=== PATIENT | female | born 1935 | race Two or more races ===

== ENCOUNTER → 2016-07-20 | Day surgery (SDC) | payer MEDICARE, MEDICAID ==
[~2016-07-20] VITALS: Ht 157.5 cm; Wt 72.6 kg
[2016-07-20] VITALS (10 sets, daily range): BP systolic 116–147; BP diastolic 58–75
[~2016-07-20] MED LIST: ATENOLOL25 MG ORAL; ATORVASTATIN CA20 MG ORAL; Bacitracin Oint 15gm Tube TOPIC ONE; Betadine 10% Oint 15gm TOPIC ONE; Bupivacaine 0.5% Inj 30 ml vial INJ ONE; CAPTOPRIL12.5 MG PO; CREON DR 12,001 EACH PO; Dexamethasone 4mg/ml vial ONE; ENALAPRIL MALE2.5 MG ORAL; FUROSEMIDE20 M1 ORAL; Hydromorphone 0.5mg/0.5ml inj IVP PRN; Ketorolac 30mg Inj IV PRN; Lidocaine 1% Plain 30 ml INJ ONE; NEXIUM40 MG ORAL; NS Irrig 1000ml IRRIG ONE; NS Irrig 1000ml ONE; Norco 5mg/325mg tab ORAL PRN; Sterile Water Irrig 1000ml IRRIG ONE; fentaNYL 100 mcg/2 mL IV PRN
--- NOTE | 2016-07-20 10:12 | Pre-Procedure Note/Attestation ---
Pre-Procedure Note/Attestation Complete Prior to Procedure Planned Procedure: right Procedure Narrative: Bunionectomy with great toe implant right foot Indications for Procedure Pre-Operative Diagnosis: Hallux Rigidus right foot Attestation I attest that I discussed the nature of the procedure; its benefits; risks and complications; and alternatives (and the risks and benefits of such alternatives ), prior to the procedure, with the patient (or the patient's legal employer relations representative). I attest that, if there was a reasonable possibility of needing a blood transfusion, the patient (or the patient's legal employer relations representative) was given the [facility] standardized written summary, pursuant to the [place] Blood Safety Act ([place] Health and Safety Code # 1645, as amended). I attest that I re-evaluated the patient just prior to the surgery and that there has been no change in the patient's H&P, except as documented below: SINAN COELLO Jul 20, 2016 10:12
--- NOTE | 2016-07-20 11:27 | Anethesia Preoperative Eval ---
Anesthesia Pre-op PMH/ROS General Date of Evaluation: Jul 20, 2016 Time of Evaluation: 09:55 Anesthesiologist: Marilyn ASA Score: ASA 2 Mallampati Score Class I : Soft palate, uvula, fauces, pillars visible Class II: Soft palate, uvula, fauces visible Class III: Soft palate, base of uvula visible Class IV: Only hard plate visible Mallampati Classification: Class I Surgeon: Cinda Diagnosis: Bunion Surgical Procedure: Toe implant Anesthesia History: none Family History: no anesthesia problems Allergies: Coded Allergies: CIPROFLOXACIN (Verified Allergy, Severe, Shortness of Breath, 07/20/16) PENICILLINS (Verified Allergy, Severe, Rash, 07/20/16) STREPTOMYCIN (Verified Allergy, Unknown, 07/20/16) Medications: see eMAR Past Medical History Cardiovascular: Reports: HTN, other - lipids Pulmonary: Denies: COPD, EDITH, asthma, other Gastrointestinal/Genitourinary: Denies: CRI, ESRD, GERD, other Neurologic/Psychiatric: Denies: CVA, TIA, dementia, depression/anxiety, other Endocrine: Denies: DM, hypothyroidism, other, steroids Hematology/Immune: Denies: DVT, anemia, bleeding disorder, other Musculoskeletal/Integumentary: Denies: DDD, DJD, OA, RA, edema, other Anesthesia Pre-op Phys. Exam Physician Exam Last Vital Signs Date Time Temp Pulse Resp B/P Pulse Ox O2 Delivery O2 Flow Rate FiO2 07/20/16 09:12 97.8 59 18 133/75 98 Room Air Neurologic: CN 2-12 intact Cardiovascular: RRR Respiratory: CTA Airway Exam Mallampati Score: Class II SREEKANTH SHEIKH M.D. Jul 20, 2016 11:27
--- NOTE | 2016-07-20 11:46 | Immediate Post-Op Evaluation ---
Immediate Post-Op Evalulation Immediate Post-Op Evalulation Procedure: Impant great toe Date of Evaluation: Jul 20, 2016 Time of Evaluation: 11:55 IV Fluids: 500 Blood Products: 0 Estimated Blood Loss: 0 Urinary Output: 0 Blood Pressure Systolic: 120 Blood Pressure Diastolic: 80 Pulse Rate: 75 Respiratory Rate: 20 O2 Sat by Pulse Oximetry: 98 Temperature (Fahrenheit): 98 Pain Score (1-10): 1 Nausea: No Vomiting: No Complications na Patient Status: awake Hydration Status: adequate Drug: Ancef 1G Given Within 1 Hr of Incision: Yes Time Given: 10:15 SREEKANTH SHEIKH M.D. Jul 20, 2016 11:46
--- NOTE | 2016-07-20 11:47 | 48 Hour Post Anesthesia Eval ---
Post Anesthesia Evaluation Procedure: Impant great toe Date of Evaluation: Jul 20, 2016 Time of Evaluation: 12:55 Blood Pressure Systolic: 120 0: 80 Pulse Rate: 75 Respiratory Rate: 20 Temperature (Fahrenheit): 98 O2 Sat by Pulse Oximetry: 99 Airway: patent Nausea: No Vomiting: No Pain Intensity: 1 Hydration Status: adequate Cardiopulmonary Status: stable Mental Status/LOC: patient returned to baseline Follow-up Care/Observations: na Post-Anesthesia Complications: na Follow-up care needed: N/A SREEKANTH SHEIKH M.D. Jul 20, 2016 11:47
--- NOTE | 2016-07-20 11:49 | Brief Operative Note ---
Immediate Post Operative Note Operative Note Pre-op Diagnosis: Hallux Rigidus right foot Procedure: Bunionectomy with great toe implant right foot Post-op Diagnosis: same as pre-op Surgeon: Cinda Anesthesiologist: Marilyn Anesthesia: general Specimen: yes Complications: none Condition: stable Estimated Blood Loss: minimal Drains: none Implant(s) used?: Yes SINAN COELLO Jul 20, 2016 11:49
--- NOTE | 2016-07-20 13:51 | Diagnostic Imaging Report ---
Indication: POST-OP, status post bunionectomy and osteotomy Technique: 3 views right foot Comparison: none Findings: Proximal phalanx. There is intervening prosthesis. Considerable degenerative proliferative change of the adjacent first metatarsal sesamoid is noted. There is retained air within the surgical wound. There is a small plantar spur. Impression: Postoperative right foot. No unusual features
--- NOTE | 2016-07-20 22:08 | Operative Note - Dictated ---
DATE OF OPERATION: 07/20/2016 DATE OF OPERATION: July 20, 2016. SURGEON: Kofi Loo D.P.M. ANESTHESIOLOGIST: Adonis Sanders M.D. ANESTHESIA: General. PREOPERATIVE DIAGNOSIS: Hallux rigidus, right foot. POSTOPERATIVE DIAGNOSIS: Hallux rigidus, right foot. PROCEDURE PERFORMED: Bunionectomy with great toe implant right foot. DESCRIPTION OF THE OPERATION: The patient was brought to the operating room and was placed on the operating room table in the supine position. General anesthesia was administered by the anesthesiologist. Local anesthesia consisting of 0.5% Marcaine plain total of 20 mL was administered to the right foot. An ankle tourniquet was applied to the right lower extremity. The foot was prepped and draped in the usual sterile manner. An Esmarch bandage was utilized to exsanguinate the blood and the right ankle tourniquet was inflated to 250 mmHg. Attention was then directed to the first metatarsophalangeal joint where an approximately 6 cm dorsal linear skin incision was centered over the joint. The incision was deepened utilizing sharp and blunt dissection with care being taken to cauterize and ligate all bleeders. At the level of the capsule, a linear capsulotomy was performed. The capsule was reflected medially and laterally. At this point, a large dorsal spur overlying the first metatarsal head was resected in total. The wound was copiously flushed utilizing sterile saline. The medial eminence of the first metatarsal was resected in total. The remaining bone was rasped smooth. Utilizing a guide to cuts proximal and distal to the joints were made utilizing the sagittal saw. The guide was then removed and the cuts were completed. Utilizing the sagittal saw removing the head of the first metatarsal and the base of the proximal phalanx in an angled position. At this point, the wound was copiously flushed. Guide hole was then introduced into the first metatarsal and reamer was utilized to create the proximal entry of the implant. At this point, the reamer was utilized to create the distal entry of the implant. A Sizer was then inserted and appeared to be in a proper position. The Sizer was removed and the wound was copiously flushed utilizing sterile saline. At this point, a size 30 Primus total great toe joint was inserted and the hallux appeared to be in proper alignment. The range of motion of that toe was adequate. At this point, the wound was copiously flushed again utilizing sterile saline. The capsule was then reapproximated utilizing 3-0 Vicryl in a simple interrupted type stitch. The subcutaneous tissue was then reapproximated utilizing 4-0 Vicryl in a buried knot type stitch. The skin was then reapproximated utilizing 4-0 nylon in a simple interrupted type stitch. The wound was dressed utilizing an Adaptic 4 x 4 gauze and 3 inch Pushpa. Right ankle tourniquet was deflated and vascular supply was noted to all digits right foot. The patient tolerated the procedure well and left the operating room to recovery room with all vital signs stable. Kofi Loo D.P.M. DR: ELMER JOB#: [id number] CC:
--- NOTE | 2016-07-20 22:47 | Pre-op HX & Phy Repo 2 SIG ---
DATE OF ADMISSION: 07/20/2016 PODIATRIC HISTORY AND PHYSICAL HISTORY OF PRESENT ILLNESS: This is a 81-year-old white female who is admitted today for an outpatient surgery of her right foot. The patient has been complaining about right foot pain for the past four years. She indicates that she is constantly experiencing pain when she is wearing shoes. She is very limited with the shoes that she can wear. The patient was consulted on bunionectomy years ago and had finally came to the decision to undergo the surgery. PAST MEDICAL HISTORY: Remarkable for hypertension, osteoarthritis, gastroesophageal reflux disease, and chronic urinary tract infections. MEDICATIONS: At home, atenolol, enalapril, Nexium, and Creon. ALLERGIES: Cipro and penicillin. PODIATRIC PHYSICAL EXAMINATION: VASCULAR STATUS: The dorsalis pedis and posterior tibial arteries are measuring 1/4 bilaterally. The capillary filling time is less than 4 seconds to all digits bilaterally. Homans sign is negative. Mild varicosities are noted, bilateral lower extremity. NEUROLOGICAL: Reveals intact reflexes, Achilles and patella bilaterally. The sharp, dull proprioception, and vibrations sensation all intact, bilateral lower extremity. Babinski is absent. Clonus is negative. MUSCULOSKELETAL: Reveals dorsal bunion, right foot at and a medial bunion, left foot. The range of motion of the first metatarsophalangeal joint is completely absent. There are nonreducible hammertoe deformities of all digits, 2 through 5 bilaterally. Crepitation is noted to range of motion of the midfoot and rearfoot. There is a stage III hallux abductovalgus on the left. DERMATOLOGICAL: Reveals mycotic nails bilaterally. There are no ulcerations or scars bilaterally. ASSESSMENT: Hallux rigidus, right foot. PLAN: The patient is admitted today for bunionectomy with great toe implant of her right foot. Risks, complications, and alternatives were discussed with the patient. Postoperative care was reviewed with the patient. The patient was given postoperative medication and elected to proceed with surgery. Kofi Loo D.P.M. DR: MIHAELA JOB#: [id number] CC:
== END | disposition home or self-care (01) ==
LOC: SUR 08:26
DX: M20.21 Hallux rigidus, right foot (principal); M21.611 Bunion of right foot; M20.41 Other hammer toe(s) (acquired), right foot; B35.1 Tinea unguium; I10 Essential (primary) hypertension; M19.90 Unspecified osteoarthritis, unspecified site; K21.9 Gastro-esophageal reflux disease without esophagitis; Z87.440 Personal history of urinary (tract) infections; Z88.3 Allergy status to other anti-infective agents; Z88.0 Allergy status to penicillin; Z88.8 Allergy status to other drugs, medicaments and biological substances
CPT/HCPCS: 28291; 73630; 97161; C1776; G8978; G8979; G8980; J0690; J1100; J2405; J3490; 94003; 94150